=== PATIENT | male | born 1975 | race Two or more races ===

== ENCOUNTER 2021-07-06 20:37 | Emergency (ER) | payer BC, OTHER ==
[~2021-07-06] VITALS: Ht 182.9 cm; Wt 113.4 kg
[2021-07-06 20:41] VITALS: BP 157/103
[2021-07-06] MEDS ORDERED: ASPirin 81 mg TAB PO ONE (21:00)
== END 2021-07-07 00:20 | disposition left against medical advice (07) ==
LOC: ER 20:37
DX: R07.89 Other chest pain (principal); I10 Essential (primary) hypertension; Z98.890 Other specified postprocedural states; Z53.29 Procedure and treatment not carried out because of patient's decision for other reasons
CPT/HCPCS: 71046

== ENCOUNTER 2023-04-05 14:53 | Emergency (ER) | payer BC, OTHER ==
[~2023-04-05] VITALS: Ht 182.9 cm; Wt 107.7 kg
[2023-04-05 21:00] VITALS: PULSE 77; RESP 12; O2SAT 97
[2023-04-05] MEDS: MORPHINE SULFATE 4 MG/ML SYR/VIAL IV ONE (21:25)
[2023-04-05] MEDS: KETOROLAC TROMETH 30 MG/ML 1ML VIAL IV ONE (21:25)
[2023-04-05] MEDS: DexAMETHasone SOD PHOS 10MG/1ML VIAL INJ IV ONE (21:25)
[2023-04-05] MEDS ORDERED: MORP15TA PO (22:03)
[2023-04-05 22:49] VITALS: BP 143/87; PULSE 78; RESP 17; O2SAT 94
[2023-04-06] MEDS ORDERED: NAP500T PO (20:09)
[2023-04-06] MEDS ORDERED: PRED20TA2 PO (20:09)
== END 2023-04-05 23:03 | disposition home or self-care (01) ==
LOC: EDBD 14:53 → EDUNIT# 14:53 → ER 14:53
DX: M54.16 Radiculopathy, lumbar region (principal); I10 Essential (primary) hypertension; Z98.890 Other specified postprocedural states
CPT/HCPCS: 96374; 96375; 99285; J1100; J1885; J2270

== ENCOUNTER 2023-04-06 09:08 | Emergency (ER) | payer BC ==
[~2023-04-06] VITALS: Ht 182.9 cm; Wt 107.7 kg
[~2023-04-06 09:08] MED LIST: MORP15TA PO
[2023-04-06] MEDS: DexAMETHasone SOD PHOS 10MG/1ML VIAL INJ IM ONE (11:03)
[2023-04-06] MEDS: KETOROLAC TROMETH 30 MG/ML 1ML VIAL IM ONE (11:03)
[2023-04-06] MEDS: MORPHINE SULFATE 4 MG/ML SYR/VIAL IM ONE (11:04)
[2023-04-06] MEDS ORDERED: PRED20TA2 PO (20:09)
[2023-04-06] MEDS ORDERED: NAP500T PO (20:09)
[2023-04-06 20:22] VITALS: BP 146/85; PULSE 89; RESP 20; TEMP 98; O2SAT 100
== END 2023-04-06 20:28 | disposition home or self-care (01) ==
LOC: EDBD 09:08 → ER 09:08
DX: G89.29 Other chronic pain (principal); M54.59 Other low back pain; I10 Essential (primary) hypertension; Z98.890 Other specified postprocedural states; Z79.899 Other long term (current) drug therapy
CPT/HCPCS: 72131; 96372; 99285; J1100; J1885; J2270